=== PATIENT | male | born 1990 | race American Indian/Alaskan Native ===

== ENCOUNTER 2018-04-22 15:20 | Emergency (ER) | payer SELFPAY ==
[2018-04-22 15:26] VITALS: BP 179/88
[2018-04-22] MEDS ORDERED: ZITHROMAX PO ONE (16:02)
[2018-04-22] MEDS ORDERED: FLAGYL PO ONE (16:02)
[2018-04-22] MEDS ORDERED: XYLOCAINE 1% MPF 5 mL INFILTRATI ONE (16:02)
[2018-04-22] MEDS ORDERED: ROCEPHIN IM ONE (16:02)
--- NOTE | 2018-04-22 16:06 | Emergency Department Report ---
ED Male HPI - General Chief complaint: Urogenital-Male Stated complaint: 2STDS/HERPES CHECK UP Time Seen by Provider: 04/22/18 15:56 Source: patient Mode of arrival: Ambulatory Limitations: No Limitations - History of Present Illness Initial comments: She is a 28-year-old -[place] male who had an exposure to Chlamydia and Trichomonas who is presenting one treatment. Patient states that he has no symptoms at this time but his significant other was diagnosed. Patient denies any fevers chills nausea vomiting or testicular pain at this time. - Related Data Allergies Allergy/AdvReac Type Severity Reaction Status Date / Time No Known Allergies Allergy Unverified 04/22/18 15:26 ED Review of Systems ROS: Stated complaint: 2STDS/HERPES CHECK UP Other details as noted in HPI Comment: All other systems reviewed and negative ED Past Medical Hx - Past Medical History Previous Medical History?: No - Surgical History Past Surgical History?: No - Social History Smoking Status: Current Every Day Smoker Substance Use Type: None ED Physical Exam - General Limitations: No Limitations General appearance: alert, in no apparent distress - Head Head exam: Present: atraumatic, normocephalic - Eye Eye exam: Present: normal appearance - ENT ENT exam: Present: mucous membranes moist - Neck Neck exam: Present: normal inspection - Respiratory Respiratory exam: Absent: respiratory distress - GI/Abdominal GI/Abdominal exam: Present: soft. Absent: distended ED Course Vital Signs 04/22/18 15:24 Temperature 98.6 F Pulse Rate 94 H Blood Pressure 179/88 O2 Sat by Pulse 97 Oximetry ED Medical Decision Making - Medical Decision Making He has not medical emergency at this time however he did have the hospitalist $ 150 co-pay and will be treated for gonorrhea Julissa Chlamydia and Trichomonas Critical care attestation.: If time is entered above; I have spent that time in minutes in the direct care of this critically ill patient, excluding procedure time. ED Disposition Clinical Impression: Exposure to STD Disposition: DC-01 TO HOME OR SELFCARE Is pt being admited?: No Does the pt Need Aspirin: No Condition: Stable Instructions: Sexually Transmitted Diseases (ED) Additional Instructions: The only way to test for active herpes is to culture an open lesion. Because you have no open sores present herpes test is not able to be done at this time. Please follow-up with primary care or the health department if you develop signs and symptoms of an active herpes outbreak. Referrals: PRIMARY CARE, [Primary Care Provider] - 3-5 Days Time of Disposition: 16:06
== END 2018-04-22 16:42 | disposition home or self-care (01) ==
LOC: ED 15:20
DX: Z20.2 Contact with and (suspected) exposure to infections with a predominantly sexual mode of transmission (principal); F17.200 Nicotine dependence, unspecified, uncomplicated
CPT/HCPCS: 96372; 99282; J0696